=== PATIENT | male | born 1980 | race Caucasian/White ===

== ENCOUNTER → 2020-02-18 14:42 | Outpatient (CLI) | payer OTHER, SELFPAY ==
[2020-02-19 07:52] LABS: COVID19 Sendout Not Detected (Not Detect)
== END ==
PROVIDERS: Visit Provider Physician Assistant
DX: Z11.59 Encounter for screening for other viral diseases (principal)
CPT/HCPCS: 87635

== ENCOUNTER 2020-02-21 13:46 | Day surgery (SDC) | payer OTHER, SELFPAY ==
[2020-02-15 12:20] VITALS: BMI 25.7
[2020-02-21] VITALS (7 sets, daily range): BP systolic 121–133; BP diastolic 63–84; PULSE 69–86; RESP 10–18; TEMP 36.3–36.8; O2SAT 96–100; BMI 24.7
--- NOTE | 2020-02-21 | DI.RAD.S_ITS ---
PROCEDURE: XR LUMBAR SPINE 1V INDICATIONS: L5-S1 MICRODISCECTOMY TECHNIQUE: 1 views of the lumbar spine were acquired. COMPARISON: [facility], MR, MR LUMBAR SPINE WITHOUT CONTRAST, 12/25/2019, 16:12. FINDINGS: Intraoperative images demonstrating markers posterior to the L5 S1 disc space. Foraminal narrowing is noted at L5-S1. IMPRESSION: Intraoperative marking images as above. Recommend correlation of real-time operative report. Dictated by: Annie Mora M.D. on 02/21/2020 at 17:37 Approved by: Annie Mora M.D. on 02/21/2020 at 17:37
[2020-02-21] MEDS: LACTATED RINGERS 1,000 ML 42 ML IV ×2 (14:24→17:38)
--- NOTE | 2020-02-21 15:37 | PM.PREOP ---
Pre-operative Note COVID-19 COVID-19 status: Negative Result date/Date tested (Pos, Neg/Pending): 02/18/20 Interval Note History & Physical reviewed/Exam performed by Physician: Yes Changes to H&P: No
--- NOTE | 2020-02-21 16:14 | PM.OP.1 ---
Operative Date/Time/Diagnoses Date of procedure: 02/21/20 Time of procedure: 17:36 Pre-op diagnosis: Lumbar disc herniation with radiculopathy Post-op diagnosis: same Procedure & Clinicians Procedure: Left L5-S1 diskectomy Use of microscope Placement of epidural catheter Same procedure as scheduled: Yes Indications: [age] year old male with intractable pain from a lumbar disc herniation. They had failed conservative management and requested operative intervention. Risks and benefits of surgery were discussed and appropriate consents were obtained. Surgeon: Cecilio Zuñiga Trim Setter Helper: Jeanine Bates Anesthesia Type: General Operative Notes Findings: None Closure Type: primary Specimen(s): none sent Estimated Blood Loss (mL): 10 Procedure in detail: Patient was brought to the operating room and intubated on the table. A time-out was performed. There were rolled over the well-padded prone position on the Bijan table. The back was prepped and draped in standard sterile fashion. Preoperative antibiotics were given. Using fluoroscopy, a 3 cm incision was made to the left of the midline at the L5-S1 level. We used Bovie to come down to and split the fascia. We then used the [employer] dilators with fluoroscopy and then opened our retractors. The soft tissue was cleared off with Bovie, a marker was placed, an x-ray was taken to confirm positioning. We then brought in the microscope. A combination of high-speed bur and Kerrison were used to perform a left-sided hemilaminotomy and hemifacetectomy. The disc was sticking up through the axilla between the nerve root and the dura. We carefully made sure that both were free and an annulotomy was performed. We used a pituitary to remove the large disc herniation. Once the majority of the herniation was removed the traversing nerve root pulled medially next to the dura. There appeared to be a small tear through the dorsal sheath of the nerve root but there was no spinal fluid leak. There was nothing to repair. We could sweep the ball probe underneath and easily retract the nerve root at this point and everything was freed up. The ball probe was swept underneath the dura along the disc to make sure there were no further loose fragments. This was also placed into the disc and moved around to make sure there were no further loose fragments. Once everything was adequately decompressed, the wound was copiously irrigated. An epidural catheter was filled with 100 mcg of fentanyl and 8 mL of 0.25% Marcaine. The dura was carefully depressed under the laminotomy site and the catheter was advanced 6 cm cephalad. The retractor was removed and the fascia was closed. The epidural catheter was then injected without resistance and removed. Superficial and skin were closed. Sterile dressing was placed. The patient was then rolled over, transferred to the stretcher, and brought to recovery room without complications. Complications: none Post-operative Condition: stable Disposition: PACU Plan for aftercare: Outpatient. Limited bending, twisting, lifting.
[2020-02-21] MEDS: CEFAZOLIN 2 GM/100 ML FROZ.PIGGY IV (16:23)
--- NOTE | 2020-02-21 16:44 | SUR.OPER ---
Prone on spine table, head in foam head support, padded chest and pelvic supports, gel pad at knees, lower legs supported by pillows; nipples, genitalia and toes free of pressure, arms secured on foam padded arm boards at <90 degrees abduction. Tape over blanket at thigh secured to table.
[2020-02-21] MEDS: VANCOMYCIN 1,000 MG VIAL 1000 MG TOP (16:48)
[2020-02-21] MEDS: THROMBIN (RECOMBINANT) 5,000 UNIT VIAL 5000 UNIT TOP (16:48)
[2020-02-21] MEDS: BUPIVACAINE 0.25% (PF) 8 ML, fentaNYL 100 MCG INJ (16:49)
[2020-02-21] MEDS: SODIUM CHLORIDE 0.9% 1,000 ML, GENTAMICIN 80 MG IRR (16:49)
[2020-02-21] MEDS: OXYCODONE/ACETAMINOPHEN 5/325 TABLET 1 TAB PO (18:01)
[2020-02-21] MEDS: ONDANSETRON 4 MG/2 ML INJ IV (18:02)
== END 2020-02-21 18:35 | disposition home or self-care (01) ==
PROVIDERS: Referring Provider Orthopaedic Surgery; Visit Provider Orthopaedic Surgery
PROC: (CPT 63030; principal; 2020-02-21 15:15)
DX: M51.16 Intervertebral disc disorders with radiculopathy, lumbar region (principal)
CPT/HCPCS: 63030; 72020; 76000; C1776; J0690; J1100; J1885; J2250; J2405; J2704; J3010

== ENCOUNTER → 2021-02-13 13:35 | Outpatient (CLI) | payer OTHER, SELFPAY ==
--- NOTE | 2021-02-13 | DI.MRI.S_ITS ---
PROCEDURE: MR LUMBAR SPINE WO CON INDICATIONS: Intervertebral disc disorders with radiculopathy, TECHNIQUE: Noncontrast sagittal T1 spin echo and T2 fast echo, sagittal STIR, axial T1 and T2 fast spin echo through the lumbar spine. In cases with scoliosis, additional coronal T2 fast spin echo may be performed. COMPARISON: [facility], CR, XR LUMBAR SPINE 1V, 02/21/2020, 16:51. [facility], MR, MR LUMBAR SPINE WITHOUT CONTRAST, 12/25/2019, 16:12 (images only, no report). FINDINGS: Image quality: Excellent. Alignment and Curvature: There is normal bony alignment. Bone Marrow: Marrow is of normal overall signal. No acute vertebral body compression fractures. Spinal Cord: Conus medullaris terminates at the L1 level. Visualized cord demonstrates normal signal and size. Paraspinous Soft Tissues: No paravertebral masses. T12-L1: Normal appearance. L1-L2: Normal appearance. L2-L3: Normal appearance. L3-L4: Normal appearance. L4-L5: The disc height is well preserved. Mild loss of disc signal is seen. Moderate disc bulge is seen, with a mild central/right disc protrusion. Moderate bilateral neural foraminal narrowing is seen. Moderate central canal narrowing is seen. There is slight progression of degenerative change compared to the prior. L5-S1: Moderate loss of disc height is seen. The disc signal is relatively well preserved. Moderate disc bulge is seen at this level. Mild to moderate facet hypertrophy can be seen. Moderate to severe bilateral neural foraminal narrowing can be seen, right worse than left. There is a degree of compression seen upon the exiting nerve roots. No significant central canal narrowing is seen. The previously seen left-sided disc extrusion has resolved. IMPRESSION: Resolution of the previous seen left-sided L5-S1 disc extrusion. Dictated by: Aravind Lopez M.D. on 02/13/2021 at 13:38 Approved by: Aravind Lopez M.D. on 02/13/2021 at 13:41
== END ==
PROVIDERS: Referring Provider Orthopaedic Surgery Orthopaedic Surgery of the Spine; Visit Provider Orthopaedic Surgery Orthopaedic Surgery of the Spine
DX: M51.16 Intervertebral disc disorders with radiculopathy, lumbar region (principal)
CPT/HCPCS: 72148

== ENCOUNTER → 2022-10-13 11:51 | Outpatient (CLI) | payer OTHER, SELFPAY ==
--- NOTE | 2022-10-13 | DI.MRI.S_ITS ---
PROCEDURE: MR LUMBAR SPINE WO CON INDICATIONS: Radiculopathy, site unspecified TECHNIQUE: Noncontrast sagittal T1 spin echo and T2 fast echo, sagittal STIR, and T2 fast spin echo through the lumbar spine. In cases with scoliosis, additional coronal T2 fast spin echo may be performed. COMPARISON: [facility], MR, MR LUMBAR SPINE WO CON, 02/13/2021, 14:04. [facility], CR, XR LUMBAR SPINE WITH FLEXION EXTENSION 5 VIEWS, 02/03/2022, 10:08. FINDINGS: Image quality: Excellent. Alignment and Curvature: 5 lumbar type vertebral bodies are present by plain film. There is loss of normal lumbar lordosis. 3 mm of retrolisthesis of L5 on S1. Bone Marrow: Marrow is of normal overall signal. No acute vertebral body compression fractures. Mild reactive signal within the endplates adjacent to the L4-L5 and L5-S1 intervertebral discs. Spinal Cord: Conus medullaris terminates at the lower L1 level. Visualized cord demonstrates normal signal and size. Paraspinous Soft Tissues: No paravertebral masses. T12-L1: Normal appearance. L1-L2: Normal appearance. L2-L3: Normal appearance. L3-L4: Normal appearance. L4-L5: Moderate disc desiccation. Mild diffuse disc bulge. Mild facet and ligamentum flavum hypertrophy. Mild canal stenosis. Mild bilateral foraminal stenosis. No significant change. L5-S1: Moderate disc height loss and desiccation. Mild diffuse disc bulge with small superimposed left paracentral protrusion. Mild bilateral facet hypertrophy. Mild canal stenosis. Moderate bilateral foraminal stenosis. Mild posterior deviation of the left S1 nerve root within the lateral recess. IMPRESSION: 1. Multilevel degenerative disc and facet disease, as well as ligamentum flavum hypertrophy and epidural lipomatosis. 2. Mild multilevel canal stenosis. 3. Multilevel foraminal stenoses, worst at L5-S1 where there are moderate foraminal stenoses. 4. Mild posterior deviation of the left S1 nerve root within the lateral recess at L5-S1, as before. Recommend correlation with clinical symptoms to ascertain relevance of this finding. Dictated by: Viraj Martell M.D. on 10/13/2022 at 13:54 Transcribed by: VANESSA on 10/13/2022 at 13:57 Approved by: Viraj Martell M.D. on 10/13/2022 at 16:43
== END ==
PROVIDERS: PCP Student in an Organized Health Care Education/Training Program; Referring Provider Student in an Organized Health Care Education/Training Program; Visit Provider Student in an Organized Health Care Education/Training Program
DX: M51.36 Other intervertebral disc degeneration, lumbar region (principal); M51.37 Other intervertebral disc degeneration, lumbosacral region; M48.061 Spinal stenosis, lumbar region without neurogenic claudication; M48.07 Spinal stenosis, lumbosacral region; M54.10 Radiculopathy, site unspecified
CPT/HCPCS: 72148